=== PATIENT | female | born 1955 | race Caucasian/White ===

== ENCOUNTER 2017-09-18 18:40 | Emergency (ER) | payer MEDICAID, OTHER ==
[~2017-09-18] VITALS: Ht 160 cm; Wt 56.8 kg
[~2017-09-18 18:40] MED LIST: AMBILIFY; ATOR20TA86 PO; DIPH50 PO; ESCI20TA PO; FLUT1DIS3 PO; GLIP5POW MC; GLIPIZIDE; ISON300T4 PO; LISINOPRIL; METFORMIN; METO-391 PO; PYRI25TA4 PO; TRAZ-147 PO; [UNRECOGNIZED DRUG - OTHER] IH
[2017-09-18] MEDS ORDERED: PERM60CR4 TP (19:05)
[2017-09-18] MEDS ORDERED: ASPI81 PO (19:05)
[2017-09-18] MEDS ORDERED: BACTDSB PO (19:05)
[2017-09-18] MEDS ORDERED: METF500T4 PO (19:05)
[2017-09-18] MEDS ORDERED: INSU100C6 SQ (19:05)
[2017-09-18] MEDS ORDERED: INSLAN SQ (19:05)
[2017-09-18] MEDS ORDERED: LEVO125 PO (19:05)
[2017-09-18 19:08] LABS: BASOPHILS % (AUTO) 0.7 % (0.0-2.0); EOSINOPHILS % (AUTO) 3.3 % (1.0-6.0); HEMATOCRIT 34.9 % (36-46); HEMOGLOBIN 12.3 g/dL (12.0-16.0); LYMPHOCYTES # (AUTO) 1.6 K/uL (1.0-4.8); LYMPHOCYTES % (AUTO) 36.1 % (22.0-44.0); MEAN CORPUSCULAR HEMOGLOBIN 32.8 pg (26.0-34.0); MEAN CORPUSCULAR HGB CONC 35.2 G/dL (31.0-37.0); MEAN CORPUSCULAR VOLUME 93 fL (80-100); MONOCYTES # (AUTO) 0.4 K/uL (0.1-1.0); MONOCYTES % (AUTO) 9.5 % (2.0-9.0); NEUTROPHILS # (AUTO) 2.2 K/uL (1.8-7.7); NEUTROPHILS % (AUTO) 50.4 % (40.0-70.0); RED BLOOD CELL COUNT(AUTO) 3.74 MIL/uL (4.00-5.20); RED CELL DISTRIBUTION WIDTH 13.1 % (11.5-14.5)
[2017-09-18 19:16] LABS: ANION GAP 9 mmol/L (8-16); CARBON DIOXIDE 27 mmol/L (22-29); CHLORIDE 105 mmol/L (98-107); CREATININE 0.81 mg/dL (0.60-1.30); GLOMERULAR FILTR. RATE CALC > 60 mL/min (>60); GLUCOSE,RANDOM 205 mg/dL (70-110); POTASSIUM 3.6 mmol/L (3.5-5.1); SODIUM SERUM 141 mmol/L (136-145); UREA NITROGEN, BLOOD 29 mg/dL (7-18)
[2017-09-18 19:24] LABS: ALANINE AMINOTRANSFERASE 34 U/L (12-78); ALBUMIN 3.1 g/dL (3.4-5.0); ALKALINE PHOSPHATASE 106 U/L (46-116); ASPARTATE AMINOTRANSFERASE 46 U/L (15-37); BILIRUBIN,TOTAL 0.4 mg/dL (0.1-1.0); LIPASE 329 U/L (73-393)
[2017-09-18 19:32] LABS: PLATELET COUNT (AUTO) 99 K/uL (150-450)
[2017-09-18 20:10] VITALS: BP 132/75
[2017-09-18] MEDS ORDERED: TraMADol HCL 50 MG TABLET PO ONE (20:15)
[2017-09-18] MEDS ORDERED: DiphenhydrAMINE HCL 25 MG CAPSULE PO ONE (20:15)
[2017-09-18] MEDS ORDERED: GLIP5 PO (20:18)
[2017-09-18] MEDS ORDERED: ARIP2 PO (20:18)
[2017-09-18] MEDS ORDERED: LISI-660 PO (20:18)
== END 2017-09-18 20:22 | disposition home or self-care (01) ==
LOC: EMS 18:41
DX: R07.89 Other chest pain (principal); F41.9 Anxiety disorder, unspecified; Z88.5 Allergy status to narcotic agent
CPT/HCPCS: 71020; 82962; 93005; 99285